=== PATIENT | male | born 1990 | race Caucasian/White ===

== ENCOUNTER → 2022-10-25 | Outpatient (CLI) | payer OTHER ==
[~2022-10-25] MED LIST: AMOX1XR PO; AMOX500 PO; CODACE30 PO; CRUTCH4 USE; DIPATR PO; HYDACE5 PO; IBUP800 PO; NAPR500 PO; OMEP20ER PO; PROCODE120 PO; PROM25 PO; [UNRECOGNIZED DRUG - REMARK]
== END ==
LOC: PLD 07:16 → LAB SHORT 07:16 → LAB 07:16
DX: D48.5 Neoplasm of uncertain behavior of skin (principal)
CPT/HCPCS: 88312